=== PATIENT | female | born 1990 | race African-American/Black ===

== ENCOUNTER → 2018-05-29 | Outpatient (CLI) | payer BC ==
--- NOTE | 2018-05-29 10:26 | RAD ---
Examination: Ultrasound abdomen limited HISTORY: History of right upper quadrant pain COMPARISON: None available. Findings: There is increased echogenicity noted throughout the liver. The right lobe of the liver measures 15.2 cm The common bile duct measures 2.5 mm transverse dimension. The gallbladder wall thickness measures 1.2 mm. No evidence of gallstones identified. The right kidney measures 11.8 cm in length. The right kidney appears lobulated. The pancreas is not well-visualized. The visualized IVC within normal limits of dimension. IMPRESSION: 1. Increased echogenicity noted throughout the liver likely hepatic steatosis. 2. No evidence of gallstones. 3. Lobulated appearing right kidney. Electronically signed by: Everton Carreon MD (05/29/2018 10:22 AM) [id number]
--- NOTE | 2018-05-29 10:27 | RAD ---
PELVIS W/TV History: Right pelvic pain, history of polycystic ovarian syndrome Comparison: None. Findings: Multiple transabdominal sonographic images of the pelvis are submitted. Pelvic structures are poorly visualized. Transvaginal ultrasound: Multiple transvaginal sonographic images of the pelvis are submitted. Endometrium is thin at about 0.1 cm. Uterus measured 7.4 x 5.2 x 3.4 cm. Right ovary measured 2.4 x 1.4 x 1.5 cm. Left ovary measured 2.8 x 2.4 x 1.9 cm. There is normal color flow and low resistance vascularity of the ovaries bilaterally. No significant free fluid is demonstrated. There is a small hyperechoic mass of the anterior myometrium in the lower uterine segment about 0.9 x 0.5 x 0.6 cm, some internal vascularity on color Doppler imaging. Impression: 1. There is a small hyperechoic mass of the anterior uterus at the lower uterine segment, likely a small fibroid. 2. There is no abnormality of either ovary, no sonographic evidence of polycystic ovaries. There is no free fluid. Electronically signed by: Dangelo Barreto MD (05/29/2018 10:22 AM) [facility]
== END | disposition home or self-care (01) ==
LOC: US 08:12
PROVIDERS: ATTEND Family Medicine
DX: R10.11 Right upper quadrant pain (principal); R10.2 Pelvic and perineal pain; E28.2 Polycystic ovarian syndrome
CPT/HCPCS: 76705; 76830; 76856

== ENCOUNTER → 2018-06-30 | Outpatient (CLI) | payer BC ==
[~2018-06-30] MED LIST: CONTRAST GIVEN. MC PRN
[2018-06-30] MEDS: IOHEXOL 240 MG/ML 50ML VIAL. PO ONE (09:00)
[2018-06-30] MEDS: IOHEXOL 300 MG/ML 100ML VIAL. IV ONE (09:00)
--- NOTE | 2018-06-30 12:22 | RAD ---
CT abdomen pelvis with contrast dated 06/30/2018. No comparison available. Clinical data indication: Right lower quadrant pain for one year. TECHNIQUE: Contiguous axial imaging of the abdomen and pelvis performed after the administration of intravenous Omnipaque 300. One or more of the following individualized dose reduction techniques were utilized for this examination: 1. Automated exposure control 2. Adjustment of the mA and/or kV according to patient size 3. Use of iterative reconstruction technique. FINDINGS: Limited images of lung bases are clear. Heart size is within normal limits. No pleural or pericardial effusion. Diffuse low-density of the liver suggesting fatty infiltration. No apparent mass. Biliary tree normal in caliber. Gallbladder unremarkable. Spleen is normal in size. Pancreas, adrenal glands and kidneys are unremarkable. No stone or hydronephrosis. Partially opacified GI tract normal in caliber and contour. No focal bowel wall thickening. Appendix normal in caliber. No ascites or lymphadenopathy. Abdominal aorta normal in caliber. Images of pelvis show nondistended urinary bladder. There is splaying of the endometrium at the fundus which could represent arcuate uterus or subseptate uterus. There is a heterogeneous cystic focus at the right adnexa that measures 5.5 cm in size. The left ovary is unremarkable. No significant free fluid. No pelvic lymphadenopathy. Bone windows show no acute findings. IMPRESSION: 1. No acute abnormality of abdomen or pelvis. Normal appendix. 2. Mild hepatic steatosis. 3. Complex cyst at the right ovary measuring up to 5.5 cm in size. Follow-up imaging may be warranted to ensure resolution. Electronically signed by: Hiram Blue MD (06/30/2018 12:19 PM) [id number]
== END | disposition home or self-care (01) ==
LOC: CT 08:22
PROVIDERS: ATTEND Family Medicine
DX: N83.201 Unspecified ovarian cyst, right side (principal); K76.0 Fatty (change of) liver, not elsewhere classified
CPT/HCPCS: 74177; Q9966; Q9967